=== PATIENT | female | born 1995 | race Caucasian/White ===

== ENCOUNTER 2018-06-23 20:09 | Emergency (ER) | payer BC ==
[~2018-06-23] VITALS: Ht 162.6 cm; Wt 90.0 kg
[2018-06-23 20:12] VITALS: BP 146/80; TEMP 98.8
[2018-06-23] MEDS ORDERED: CLARITIN 1010 MG/TAB PO (21:31)
[2018-06-23 21:55] VITALS: PULSE 75
== END 2018-06-23 21:55 | disposition home or self-care (01) ==
LOC: COL.ER 20:09
DX: L50.9 Urticaria, unspecified (principal); Z90.89 Acquired absence of other organs